=== PATIENT | male | born 1985 | race Caucasian/White ===

== ENCOUNTER 2025-04-13 14:17 | Emergency (ER) | payer OTHER, SELFPAY ==
[2025-04-13 14:22] VITALS: BP 156/102
[2025-04-13 15:19] VITALS: BP 158/97
--- NOTE | 2025-04-13 15:45 | ED.GENMED ---
History of Present Illness
General
Chief Complaint: Head Injury
Source: patient
Time Seen by Provider: 04/13/25 15:32
History of Present Illness
History of Present Illness:
40-year-old male with no significant past medical history presenting to the emergency department for evaluation after he was at work yesterday and a piece of heavy plaster fell onto his head and since that time has had abnormal sensation in his head
as well as intermittent dizzy episodes, concern for concussion and sent by his employer for further evaluation. There was no loss of consciousness, vomiting, visual disturbances, focal weakness or numbness. Patient denies any previous history of
any major head injury. Patient is not on any anticoagulant medication. No other concerns presently.
Past History
Past History
ED Past Medical History: None
ED Past Surgical History: None
Social History
Tobacco: Non-smoker
Alcohol: None
Drug: None
Living: alone
Employment: Employed
Review of Systems
Review of Systems
All Other Systems: ROS reviewed and negative except as documented in HPI and ROS
Phy Exam
Physical Exam
Physical Exam:
GENERAL: Alert , in no apparent distress
EYE: conjunctiva clear
Head: Normocephalic atraumatic
NECK: Supple, no midline tenderness, ambulatory with steady gait, moves all extremities
ENT: mmm.
LUNGS: no acute respiratory distress
NEUROLOGICAL: Alert and oriented
SKIN: Warm and dry, skin intact.
MUSCULOSKELETAL: well perfused.
PSYCH: Normal and appropriate interaction.
Scores
Heart Failure Risk
Heart Failure Risk Score: Not Applicable
Heart Score for Chest Pain Patients
STEMI patient?: Not applicable
Withdrawal Assessment of Alcohol
Withdrawal Assessment Completed?: Not applicable
Course
Orders/Labs/Results
Orders:
Orders
04/13/25 15:38
CT Head W/o Iv Contrast Urgent
Comment:
Reason For Exam: head injury, dizzy
Vital Signs
Initial and Last Documented VS:
Initial Vital Signs
Temp Pulse Resp BP Pulse Ox
98.9 F 73 18 156/102 98
04/13/25 14:22 04/13/25 14:22 04/13/25 14:22 04/13/25 14:22 04/13/25 14:22
Last Documented Vital Signs
Temp Pulse Resp BP Pulse Ox
98.9 F 79 18 158/97 100
04/13/25 14:22 04/13/25 15:19 04/13/25 15:19 04/13/25 15:19 04/13/25 15:51
MDM/Problems Addressed
Differential Diagnosis Includes:
Contusion
Concussion
Intracranial bleeding
MDM/Problems Addressed:
40-year-old male presenting to the emergency department for evaluation after a heavy piece of plaster fell onto his head yesterday while at work, today had headache and felt dizzy. Exam reassuring. Suspect concussion/contusion to be the most
likely diagnosis. Discussed risk versus benefit of CT imaging and patient ultimately preferred to proceed with getting the CT scan. Discussed concussion management. Anticipate discharge home pending scan results
*Radiology
Radiology exam reviewed: radiology read reviewed
*Pulse Oximetry
SaO2: 100
Oxygen Mode of Delivery: Room air
Patient hypoxic: no
*Critical Care Note
Total Time (30-74mins, 75-104mins- exclusive of procedures): Not Applicable
Patient Management
Escalation/DeEscalation of care consider admission/obs:
CT of the head is negative for any acute intracranial pathologies. Patient is otherwise stable for discharge home.
ED Attending Note
-
Portions of this chart may have been created with voice recognition software.� Occasional wrong word or��sound alike� substitutions may have occurred due to the inherent limitations of voice recognition software.
Discharge Plan
Departure
Patient Disposition: Home (Routine Discharge)
Date of Disposition: 04/13/25
Time of Disposition: 18:52
Patient with high blood pressure during this ER visit?: Yes
Discharge Problem:
Head injury
Instructions: Concussion, Adult (DC)
Referrals:
NONE,* [Family Provider, Internal Medicine]
Stand Alone Forms: Return to Work
Interventions
Interventions:
*Risk Screen - Suicide Last Done: 04/13/25 14:22
*General Assessment Last Done: 04/13/25 14:22
*Neglect/Abuse Screening Last Done: 04/13/25 14:22
*ED- Fall Risk Assessment Last Done: 04/13/25 14:22
*ED COVID-19 Vaccine History Last Done: 04/13/25 14:22
*Nursing Disposition Last Done: 04/13/25 19:15
ED- Neurological Assessment Last Done: 04/13/25 15:19
ED-Skin Assessment Last Done: 04/13/25 15:19
Discharge Date and Time
Discharge Date/Time: 04/13/25 18:50
Print Language: CYMRAES
--- NOTE | 2025-04-13 19:15 | EDRN ---
Discharge instructions given to patient by Mars Tariq PA-C.
== END 2025-04-13 18:50 | disposition home or self-care (01) ==
LOC: EMR 14:17
PROVIDERS: EMERGENCY PHYSICIAN Emergency Medicine
DX: S09.90XA Unspecified injury of head, initial encounter (principal); W20.8XXA Other cause of strike by thrown, projected or falling object, initial encounter; Y92.89 Other specified places as the place of occurrence of the external cause; Y99.0 Civilian activity done for income or pay
CPT/HCPCS: 99284; 70450